=== PATIENT | male | born 1960 | race Caucasian/White ===

== ENCOUNTER 2018-01-18 17:38 | Emergency (ER) | payer MEDICARE, MEDICAID ==
[~2018-01-18] VITALS: Ht 180.3 cm; Wt 122.0 kg
[~2018-01-18 17:38] MED LIST: AMIO200T40 PO; ASPI-1265 PO; ATOR20TA66 PO; CARV3.1289 PO; LISI2.5T2 PO; NICO-631 TD; NITR0.4T48 SL; SPIR25TA5 PO; UNABLE TO OBTAIN
[2018-01-18] MEDS ORDERED: LIDOcaine 1% 30ml preserv. free vial IJ ONE (19:00)
[2018-01-18] MEDS ORDERED: SULF1TAB49 PO (19:02)
[2018-01-18 19:30] VITALS: BP 115/85
== END 2018-01-18 19:32 | disposition home or self-care (01) ==
LOC: ER 17:39
DX: D23.9 Other benign neoplasm of skin, unspecified (principal); L02.811 Cutaneous abscess of head [any part, except face]; I25.10 Atherosclerotic heart disease of native coronary artery without angina pectoris; I10 Essential (primary) hypertension; I25.2 Old myocardial infarction; Z98.61 Coronary angioplasty status; Z79.82 Long term (current) use of aspirin; Z79.899 Other long term (current) drug therapy
CPT/HCPCS: 10060; 99283; J3490

== ENCOUNTER 2022-12-25 09:54 | Emergency (ER) | payer MEDICARE, MEDICAID ==
[~2022-12-25] VITALS: Ht 180.3 cm; Wt 116.4 kg
[~2022-12-25 09:54] MED LIST changes: +AMI200T PO; -AMIO200T40 PO; +LISI2.5T14 PO; -LISI2.5T2 PO
[2022-12-25 10:00] VITALS: BP 157/96
[2022-12-25] MEDS ORDERED: CefTRIAXone 1000mg IM Kit (w/lidocaine diluent) IM STA (10:33)
[2022-12-25] MEDS ORDERED: NYST30CR35 TP (10:40)
[2022-12-25] MEDS ORDERED: azithromycin 250mg tablet PO ONE (10:45)
[2022-12-25 10:47] LABS: CLARITY,URINE CLEAR (Clear); COLOR,URINE YELLOW (Yellow); GLUCOSE, URINE 500 mg/dl (Neg); KETONES,URINE NEGATIVE (Neg); LEUKOCYTE ESTERASE ,URINE NEGATIVE (Neg); NITRITES, URINE NEGATIVE (Neg); OCCULT BLOOD,URINE NEGATIVE (Neg); PROTEIN,URINE NEGATIVE (Neg); UROBILINOGEN,URINE 0.2 E.U/dL (0.2-1.0)
[2022-12-25 10:52] LABS: UA COLLECTION TYPE CLN CATCH MIDSTREAM
[2022-12-25] MEDS ORDERED: KETO15CR2 TOP (20:43)
== END 2022-12-25 11:06 | disposition home or self-care (01) ==
LOC: ER 09:54
DX: R35.0 Frequency of micturition (principal); R30.0 Dysuria; I11.0 Hypertensive heart disease with heart failure; Z79.899 Other long term (current) drug therapy
CPT/HCPCS: 36415; 81003; 87491; 87591; 96372; 99283; J0696